=== PATIENT | female | born 1985 | race Caucasian/White ===

== ENCOUNTER 2019-11-12 13:12 | Inpatient (IN) ==
[2019-11-12] MEDS ORDERED: OXYTOCIN 30 UNITS/500 ML BAG IV PRN ×3 (14:03→22:29)
[2019-11-12] MEDS ORDERED: PENICILLIN G POTASSIUM 3 MU in DEXTROSE 5% 100 ML IV PRN (14:03)
--- NOTE | 2019-11-12 14:08 | History & Physical Report ---
Date of Service November 12, 2019 Assessment & Plan (1) Supervision of normal intrauterine in multigravida: 34yo at 38.2 weeks GA. PROM 1. Fetus: Cat 1 2. Labor: PROM confirmed. Rare contractions at present. Will start Oxytocin 3. (2) PROM (premature rupture of membranes): History of Present Illness Primary Care Provider: Won Pablo DO 34yo at 38.2 weeks GA. Presents with LOF since 1am today. Reports irregular contractions. Denies VB. Good FM. complicated GBS positive and hypothyroidism. Initial OB Labs 04/28/19 Blood Type & RH A positive Antibody Screen negative HCT/HGB 40.8/ 13.1 Platelets 282 Pap Test WNL Chlamydia-neg Gonorrhea-neg Rubella-immune RPR non reactive Urine Culture/Screen-negative HBsAg non reactive HIV negative TSH- 1.28 24-28 Week OB Labs HCT/HGB 38.3/11.9 Diabetes Screen (1hr) 155 2HR GTT (if screen abnormal) FASTING 86, 1 HR 165, 2 HR 133, 3 HR 119 Allergies Allergy/AdvReac Type Severity Reaction Status Date / Time acetaminophen [From Vicodin] Allergy Severe nausea, Verified 11/04/19 15:35 vomiting hydrocodone [From Vicodin] Allergy Severe nausea, Verified 11/04/19 15:35 vomiting lidocaine Allergy Severe Anaphylaxis Verified 11/04/19 15:35 Home Medications Home Medications Medication Instructions Recorded Confirmed Type folic acid 400 mcg tablet 400 mcg PO DAILY #30 tab 04/02/19 11/04/19 Rx prenat.vits,brodie,hju-bvof-tbzov 1 tab PO DAILY 04/02/19 11/04/19 History levothyroxine 125 mcg tablet 125 mcg PO DAILY #90 tab 06/19/19 11/04/19 Rx Patient History Medical History (Updated 11/12/19 @ 14:13 by Mich Sheffield MD) Back pain History of labor Hurthle cell adenoma (Resolved) Hypothyroidism (Inactive) Muscle weakness (Inactive) Thyroid ca Surgical History (Updated 09/14/19 @ 14:35 by Sara Campos) History of thyroidectomy (Inactive) S/P cholecystectomy Family History (Updated 09/14/19 @ 15:16 by Sara Campos) Mother Thyroid disease Endometriosis Father Heart disease Social History (Updated 09/14/19 @ 15:17 by Sara Solorzano marital status: marital status details: Mich Delatorre 35, Current Living Situation: Spouse Current Living Situation Comment: lives with spouse and child, no pets current occupational status: unemployed current occupation: homemaker Feels Safe at Home: Yes Smoking Status: Never smoker Hx Alcohol Use: No Hx Substance Use: No Physical Exam Gastrointestinal (Abdomen): Inspection/Auscultation: abdomen not distended Percussion/Palpation: abdomen soft; abdomen nontender, no guarding and abdomen not rigid Genitourinary: OB Exam Abdomen: + vertex Manual OB Exam: + cervical dilation (1.5), + cervical effacement 50%, + station -2 and + amniotic fluid clear, nitrazine positive and ferning present OB Exam Monitor Tracing: + external FHT monitor used, + external uterine monitor used, + category I and + normal FHT variability; no category II, no category III, no early decelerations present, no late decelerations present and no variable decelerations Results & Data ([facility]) Vital Signs (Past 12 Hours) Vital Signs Pulse BP 11/12/19 13:15 111 H 117/78 Coding Diagnoses Supervision of normal intrauterine in multigravida Z34.80 PROM (premature rupture of membranes) O42.90
[2019-11-12 14:19] LABS: Hematocrit (blood only) 36.8 % (37-47); Hemoglobin 12.6 g/dL (12.0-16.0); Mean Corpuscular Hemoglobin 29.3 pg (25-34); Mean Corpuscular Volume 85.6 fL (80-100); Mean Platelet Volume 10.2 fL (7.4-10.4); Platelet Count 202 K/uL (130-400); RDW Coefficient of Variation 14.9 % (11.5-14.5); RDW Standard Deviation 45.9 fL (36.4-46.3); White Blood Count 15.84 K/uL (4.8-10.8)
[2019-11-12 14:21] LABS: Mean Corpuscular Hgb Conc 34.2 g/dL (32-36)
[2019-11-12] MEDS ORDERED: PENICILLIN G POTASSIUM 6 MU in DEXTROSE 5% 250 ML IV ONE (14:30)
[2019-11-12] MEDS: LACTATED RINGER'S 1,000 ML IV PRN ×2 (14:53→17:51)
[2019-11-12] MEDS ORDERED: ePHEDrine sulfate 50 MG/ML AMP ONE (17:14)
[2019-11-12] MEDS ORDERED: BUPIVACAINE 0.25% 30 ML VIAL ONE (17:14)
[2019-11-12] MEDS ORDERED: fentaNYL citrate 100 MCG/2 ML VIAL ONE (17:15)
[2019-11-12] MEDS ORDERED: fentaNYL 2MCG/ML ROPIV 1.25MG/ML 100 ML BAG EPI ONE (17:15)
--- NOTE | 2019-11-12 20:20 | Labor Progress Brief Note ---
Date of Service November 12, 2019 Subjective Reason For Note: Routine Evaluation Assessment & Plan (1) Supervision of normal intrauterine in multigravida: 34yo at 38.2 weeks GA. PROM 1. Fetus: Cat 1 2. Labor: PROM confirmed. Progressing. Continue Oxytocin 3. GBS positive 4. Vitals WNL Epidural in place (2) PROM (premature rupture of membranes): Admission and Anticipated Discharge Date Admission Date: November 12, 2019 Physical Exam Genitourinary: Manual OB Exam: + cervical dilation 7 cm, + cervical effacement 90%, + station 0 and + amniotic fluid clear OB Exam Monitor Tracing: + external FHT monitor used, + external uterine monitor used and + category I; no category II, no category III, no normal FHT variability, no early decelerations present, no late decelerations present and no variable decelerations Results [facility] Data ([facility]) Vital Signs (Past 12 Hours) Vital Signs Temp Pulse Resp BP Pulse Ox 11/12/19 20:17 86 98 11/12/19 20:15 87 120/64 11/12/19 20:12 97 H 99 11/12/19 20:07 93 H 99 11/12/19 20:02 88 99 11/12/19 20:00 90 113/79 11/12/19 19:57 101 H 100 11/12/19 19:52 90 100 11/12/19 19:47 91 H 99 11/12/19 19:44 98 H 116/59 L 11/12/19 19:42 103 H 99 11/12/19 19:37 84 98 11/12/19 19:32 85 98 11/12/19 19:30 36.8 C 20 11/12/19 19:29 101 H 115/72 11/12/19 19:27 90 97 11/12/19 19:22 90 98 11/12/19 19:17 104 H 98 11/12/19 19:14 104 H 104/55 L 11/12/19 19:12 105 H 98 11/12/19 19:07 96 H 98 11/12/19 19:02 95 H 97 11/12/19 19:00 91 H 110/58 L 11/12/19 18:59 20 11/12/19 18:57 97 H 100 11/12/19 18:52 90 98 11/12/19 18:47 102 H 98 11/12/19 18:44 110 H 20 104/57 L 11/12/19 18:42 105 H 97 11/12/19 18:37 104 H 98 11/12/19 18:32 98 H 98 11/12/19 18:29 20 11/12/19 18:28 99 H 107/57 L 11/12/19 18:27 103 H 98 11/12/19 18:23 103 H 112/58 L 11/12/19 18:22 103 H 98 11/12/19 18:21 90 114/61 11/12/19 18:19 100 H 108/61 11/12/19 18:17 97 H 114/61 99 11/12/19 18:15 96 H 121/63 11/12/19 18:13 94 H 127/70 11/12/19 18:12 97 H 97 11/12/19 18:07 100 H 99 11/12/19 18:02 109 H 98 11/12/19 17:36 100 H 100 11/12/19 17:31 101 H 100 11/12/19 17:26 100 H 98 11/12/19 17:21 89 97 11/12/19 17:20 36.8 C 20 11/12/19 17:16 93 H 97 11/12/19 17:12 88 127/62 11/12/19 16:16 87 119/77 11/12/19 15:13 36.7 C 104 H 20 123/78 11/12/19 13:24 36.7 C 111 H 20 117/78 11/12/19 13:15 111 H 117/78 Coding Level of Care Code None Diagnoses Supervision of normal intrauterine in multigravida Z34.80 PROM (premature rupture of membranes) O42.90
[2019-11-12] MEDS ORDERED: DIPHTHERIA/TETANUS/PERTUSSIS 0.5 ML SYR/VIAL IM ONE (22:29)
[2019-11-12] MEDS ORDERED: SUPERCREAM 0.870% 15 GM JAR EXT PRN (22:29)
[2019-11-12] MEDS ORDERED: BENZOCAINE 20% AER SPR 82.5 GM CAN EXT PRN (22:29)
[2019-11-12] MEDS ORDERED: HYDROCORTISONE ACETATE 25 MG SUPP PR PRN (22:29)
[2019-11-12] MEDS ORDERED: bisacodyL 10 MG SUPP PR PRN (22:29)
[2019-11-12] MEDS ORDERED: ACETAMINOPHEN 325 MG TAB PO PRN (22:29)
[2019-11-13] MEDS: IBUPROFEN 600 MG TAB PO PRN ×3 (04:33→20:08)
[2019-11-13] MEDS: LEVOTHYROXINE SODIUM 125 MCG TABLET PO SCH (05:36)
[2019-11-13 06:28] LABS: Hematocrit (blood only) 35.7 % (37-47); Hemoglobin 11.9 g/dL (12.0-16.0)
--- NOTE | 2019-11-13 07:35 | Obstetrical Progress Note ---
Date of Service November 13, 2019 Assessment & Plan (1) PROM (premature rupture of membranes): 34 yo F PPD1 s/[ complicated by PROM at 38.2 wks with GBS+ status - doing well today - continue supportive care - encourage ambulation and (2) Encounter for care and examination after delivery: Admission and Anticipated Discharge Date Admission Date: November 12, 2019 Supervising Physician Co-Signing Physician Notes Patients seen and evaluated and agree with the above findings and plan. Routine care Subjective no complaints this AM. Review of Systems Constitutional: + fatigue; no fever and no chills Respiratory: no cough and no dyspnea Cardiovascular: + edema; no chest pain, no syncope and no calf pain Gastrointestinal: + cramping; no abdominal pain, no nausea, no vomiting, no constipation and no diarrhea/loose stools Genitourinary: no dysuria and no difficulty urinating Neurologic: no headache(s) Physical Exam Constitutional: well developed and well nourished Respiratory: normal respiratory effort; no respiratory distress, no labored breathing and no cough Auscultation: no crackles, no rales, no rhonchi and no wheezes Cardiovascular: Rate/Rhythm: regular rate and regular rhythm Heart Sounds: no gallop, no murmur and no cardiac rub Extremities: no pedal edema Gastrointestinal (Abdomen): Inspection/Auscultation: + abdomen distended and normal bowel sounds Percussion/Palpation: abdomen soft; no guarding Musculoskeletal: no tenderness to palpation of calves bilaterally Genitourinary: Uterus small and firm, palpable in midline at level of umbilicus, some tenderness to palpation. Results & Data ([facility]) Vital Signs (Past 12 Hours) Vital Signs Temp Pulse Pulse Resp BP BP Pulse Ox 11/13/19 04:26 36.7 C 92 H 16 105/72 98 11/13/19 02:10 36.8 C 97 H 18 105/64 97 11/13/19 01:04 109 H 120/64 11/13/19 00:49 101 H 121/60 11/13/19 00:36 106 H 18 135/62 11/13/19 00:20 96 H 116/58 L 11/13/19 00:05 102 H 18 116/69 11/12/19 23:50 94 H 110/60 11/12/19 23:34 98 H 18 108/65 20 23:20 101 H 18 104/59 L 20 23:05 98 H 20 110/55 L 20 23:01 20 11/12/19 22:50 90 135/65 20 22:33 105 H 137/78 20 22:32 36.8 C 18 20 22:12 156 H 96 20 22:07 117 H 99 20 22:02 112 H 98 20 21:59 96 H 131/68 20 21:57 96 H 99 20 21:52 83 97 20 21:47 87 97 20 21:44 89 119/62 20 21:42 89 99 20 21:37 84 98 20 21:32 80 98 20 21:30 36.9 C 18 11/12/19 21:29 81 125/74 20 21:27 87 99 20 21:22 86 98 11/11/20 21:17 83 99 11/11/20 21:14 81 116/68 11/11/20 21:12 85 99 20 21:08 98 H 91 20 21:07 93 H 100 20 21:02 109 H 99 20 20:59 90 123/82 11/11/20 20:57 88 99 11/11/20 20:52 86 100 25/20 20:47 100 H 99 20 20:45 111 H 126/75 20 20:42 96 H 99 11/11/20 20:37 84 99 0625/20 20:32 97 H 100 25/20 20:30 18 11/11/20 20:29 89 115/69 25/20 20:27 86 100 25/20 20:23 89 93 25/20 20:22 89 100 25/20 20:17 86 98 0625/20 20:15 87 120/64 0625/20 20:12 97 H 99 25/20 20:07 93 H 99 20 20:02 88 99 11/12/19 20:00 90 113/79 11/12/19 19:57 101 H 100 11/12/19 19:52 90 100 11/12/19 19:47 91 H 99 11/12/19 19:44 98 H 116/59 L 11/12/19 19:42 103 H 99 11/12/19 19:37 84 98 Laboratory Results WBC 15.84 K/uL (4.8-10.8) H 11/12/19 14:13 RBC 4.30 M/uL (4.2-5.4) 11/12/19 14:13 Hgb 11.9 g/dL (12.0-16.0) L 11/13/19 06:15 Hct 35.7 % (37-47) L 11/13/19 06:15 MCV 85.6 fL (80-100) 11/12/19 14:13 MCH 29.3 pg (25-34) 11/12/19 14:13 MCHC 34.2 g/dL (32-36) 11/12/19 14:13 RDW Std Deviation 45.9 fL (36.4-46.3) 11/12/19 14:13 RDW Coeff of Audrey 14.9 % (11.5-14.5) H 11/12/19 14:13 Plt Count 202 K/uL (130-400) 11/12/19 14:13 MPV 10.2 fL (7.4-10.4) 11/12/19 14:13 Resident Activity Tracking Resident Involvement: Resident Care Provided Care Provided: OB Delivery
[2019-11-13] MEDS: DOCUSATE SODIUM 100 MG CAP PO SCH ×2 (07:51→20:09)
[2019-11-13] MEDS: PRENATAL VITAMIN 1 TAB PO SCH (07:51)
--- NOTE | 2019-11-13 09:00 | Anesthesia Procedure Note ---
Date of Service November 13, 2019 Anesthesia Post Epidural Note Vital Signs Vital Signs: Temp Pulse Resp BP Pulse Ox 36.5 C 85 18 107/72 98 11/13/19 07:55 11/13/19 07:55 11/13/19 07:55 11/13/19 07:55 11/13/19 07:55 Pain Intensity Bilateral Lower Back: Pain Intensity: 2 Notes Mental Status: alert / awake / arousable and participated in evaluation Patient Amnestic to Procedure: No Nausea / Vomiting: adequately controlled Pain: adequately controlled Airway Patency, RR, SpO2: stable & adequate BP & HR: stable & adequate Hydration State: stable & adequate Neuraxial Anesthesia: was administered and sensory block is resolving Anesthetic Complications: no major complications apparent and Pt Satisfied with anesthetic care Epidural: Removed without complications and With tip intact
--- NOTE | 2019-11-13 11:18 | Delivery Summary ---
DATE OF OPERATION: 11/12/2019 PROCEDURE: Normal spontaneous vaginal delivery with first degree perineal laceration repair. SURGEON: Mich Sheffield MD. PREOPERATIVE DIAGNOSES: 1. Single intrauterine at 38 weeks 2 days gestational age. 2. Premature rupture of membranes. 3. Hypothyroid following thyroid cancer. 4. Group B Streptococcus positive. POSTOPERATIVE DIAGNOSES: 1. Single intrauterine at 38 weeks 2 days gestational age. 2. Premature rupture of membranes. 3. Hypothyroid following thyroid cancer. 4. Group B Streptococcus positive. 5. Status post delivery. SURGEON: Mich Sheffield MD. ESTIMATED BLOOD LOSS: 200 mL. DRAINS: None. FLUIDS: Continuous lactated Ringer. URINE OUTPUT: Not measured. COMPLICATIONS: None. FINDINGS: Viable female with weight pending and Apgars of 8 and 9 at one and five minutes, respectively. INDICATIONS: Gina is a 34-year-old G2, P1-0-0-1, admitted at 38 weeks 2 days gestational age with premature rupture of membranes. At first evaluation, she was noted to be 1.5 cm dilated, 50% effaced, -2 station. She was conrad only on rare occasion and was started on oxytocin per regular protocol. She later received an epidural for anesthesia and progressed in labor to complete-complete, +1 station, at which time she did feel the urge to push. At +2 station, pushed over approximately 6-7 contractions to achieve delivery. DESCRIPTION OF PROCEDURE: The patient progressed to 10 cm dilated, 100% effaced, +2 station, pushed over intact perineum with epidural anesthesia and delivered a viable female , weight and Apgars as noted above. Head of delivered in ANA position, restituted to left transverse. No nuchal cord was noted. Body and shoulders quickly followed. was noted to be vigorous upon delivery and a 1-minute delayed cord clamping was initiated. Cord was then double clamped and cut, and remained on maternal abdomen. Cord blood was obtained. Attention was then turned to deliver the placenta, which was delivered intact, 3-vessel cord, with gentle cord traction. On inspection of the perineum, vagina and cervix, there was noted to be a small first-degree perineal laceration, which was repaired with interrupted stitch. Needle, sponge and instrument counts were correct at the completion of the case. Both mother and were stable in the immediate post-delivery period. I attest to the content of the Intraoperative Record and any orders documented therein. Any exception s are noted below.
[2019-11-13 16:10] VITALS: O2SAT 98
[2019-11-13] MEDS ORDERED: bisacodyL 5 MG TABEC PO SCH (20:00)
[2019-11-13 20:55] VITALS: TEMP 97.9
[2019-11-14] MEDS: IBUPROFEN 600 MG TAB PO PRN ×2 (00:41→05:59)
[2019-11-14] MEDS: LEVOTHYROXINE SODIUM 125 MCG TABLET PO SCH (05:59)
--- NOTE | 2019-11-14 07:48 | Obstetrical Progress Note ---
Date of Service November 14, 2019 Assessment & Plan (1) Encounter for care and examination after delivery: - doing well - desires d/c - instructions given - f/u in 6 weeks Subjective Ambulation: ambulating normally Feeding Type:: breast feeding Physical Exam Constitutional WD/WN, vitals as above Cardiovascular Extremities: + pedal edema ((+)2) Gastrointestinal (Abdomen) Fundus firm below umbilicus Musculoskeletal No deep calf tenderness Results & Data ([facility]) Vital Signs (Past 12 Hours) Vital Signs Temp Pulse Resp BP Pulse Ox 11/14/19 00:00 97.9 F 100 H 18 107/72 98 11/13/19 20:05 97.9 F 92 H 18 115/79 98
[2019-11-14] MEDS: DOCUSATE SODIUM 100 MG CAP PO SCH (08:07)
[2019-11-14] MEDS: PRENATAL VITAMIN 1 TAB PO SCH (08:07)
[2019-11-14 09:54] VITALS: BP 111/78; PULSE 80
== END 2019-11-14 14:50 | disposition home or self-care (01) | DRG 807 ==
LOC: OPB 13:12 → 4S1 13:13 → 4S2 11-13 01:52
DX: E03.9 Hypothyroidism, unspecified; O99.284 Endocrine, nutritional and metabolic diseases complicating childbirth; Z3A.38 38 weeks gestation of pregnancy; O70.0 First degree perineal laceration during delivery; O99.824 Streptococcus B carrier state complicating childbirth; Z37.0 Single live birth; Z85.850 Personal history of malignant neoplasm of thyroid